=== PATIENT | male | born 1995 | race Caucasian/White ===

== ENCOUNTER 2020-04-23 00:38 | Emergency (ER) | payer OTHER ==
[~2020-04-23] VITALS: Ht 170.2 cm; Wt 90.9 kg
[2020-04-23] MEDS ORDERED: TRIA15OI9 TOP (00:49)
[2020-04-23 01:13] VITALS: BP 147/98
== END 2020-04-23 01:15 ==
LOC: ER 00:39
DX: F12.10 Cannabis abuse, uncomplicated (principal); F17.210 Nicotine dependence, cigarettes, uncomplicated; Z04.1 Encounter for examination and observation following transport accident; Z02.89 Encounter for other administrative examinations; V87.7XXA Person injured in collision between other specified motor vehicles (traffic), initial encounter; Y93.89 Activity, other specified; Y92.89 Other specified places as the place of occurrence of the external cause; Y99.8 Other external cause status
CPT/HCPCS: 99283